=== PATIENT | male | born 1955 | race Asian ===

== ENCOUNTER 2024-01-05 10:52 | Day surgery (SDC) | payer OTHER ==
[~2024-01-05] VITALS: Ht 172.7 cm; Wt 99.8 kg
[2024-01-05] MEDS ORDERED: LIDOCAINE 2% 100 MG/5 ML UJET TP ONE (11:45)
[2024-01-05] MEDS ORDERED: fentaNYL citrate 0.05 MG/ML VIAL ONE (11:45)
[2024-01-05] MEDS: fentaNYL citrate 0.05 MG/ML VIAL IVP ONE (12:03)
== END 2024-01-05 13:02 | disposition home or self-care (01) ==
LOC: MDS 10:52 → MMU 10:59 → MDS 13:02
PROVIDERS: ATTEND Internal Medicine Gastroenterology
DX: Z12.11 Encounter for screening for malignant neoplasm of colon (principal); F17.210 Nicotine dependence, cigarettes, uncomplicated
CPT/HCPCS: 45378; J3010